=== PATIENT | female | born 1965 | race Caucasian/White ===

== ENCOUNTER → 2017-01-01 | Outpatient (CLI) | payer OTHER ==
[~2017-01-01] MED LIST: CLTP PO; FBR PO; METH4PAK4 PO; MULT-506 PO
--- NOTE | 2017-01-02 12:52 | MAMMOGRAPHY REPORT ---
BILATERAL DIGITAL SCREENING MAMMOGRAM TOMOSYNTHESIS WITH CAD: 01/01/2017 CLINICAL HISTORY: Routine screening. Patient has no complaints. TECHNIQUE: Breast tomosynthesis in addition to standard 2D mammography was performed. Current study was also evaluated with a Computer Aided Detection (CAD) system. COMPARISON: Comparison is made to exams dated: 12/28/2015 mammogram, 12/08/2014 mammogram, 12/06/2013 m ammogram, 12/03/2012 mammogram, 11/27/2011 mammogram, and 11/25/2010 mammogram - [facility]. BREAST COMPOSITION: The tissue of both breasts is heterogeneously dense, which may obscure small ma sses. FINDINGS: There is a possible cluster of calcifications seen within the left upper outer quadrant, for which spot magnification views are recommended for further evaluation. The remainder of both breasts are stable compared to prior exams, without suspicious masses, calcifi cations, or areas of architectural distortion noted. IMPRESSION: ACR BI-RADS CATEGORY 0: INCOMPLETE EVALUATION: NEED ADDITIONAL IMAGING EVALUATION Left upper outer quadrant calcifications, for which additional imaging evaluation is recommended. T he patient will be called to schedule an appointment. Approximately 10% of breast cancers are not detected with mammography. A negative mammographic repor t should not delay biopsy if a clinically suggestive mass is present. Elle Díaz M.D. /:01/01/2017 16:47:32 Oxygen Equipment Preparer: Kev aPthak RT(R)(M), [facility] letter sent: Addl Imaging 0 BI-RADS Code: ACR BI-RADS Category 0: Incomplete Evaluation: Need Additional Imaging Evaluation
== END | disposition home or self-care (01) ==
LOC: C.MAMM 12:00
PROVIDERS: ATTEND Physician Assistant
DX: Z12.31 Encounter for screening mammogram for malignant neoplasm of breast (principal); R92.1 Mammographic calcification found on diagnostic imaging of breast

== ENCOUNTER → 2017-01-08 | Outpatient (CLI) | payer OTHER ==
--- NOTE | 2017-01-08 12:55 | MAMMOGRAPHY REPORT ---
UNILATERAL LEFT DIGITAL DIAGNOSTIC MAMMOGRAM: 01/08/2017 CLINICAL HISTORY: 51-year-old woman called back from screening mammography for a small cluster of alvin rocalcifications in the upper outer quadrant of the left breast. TECHNIQUE: Spot magnification left CC and ML views were obtained. COMPARISON: Comparison is made to exams dated: 01/01/2017 mammogram, 12/28/2015 mammogram, 12/08/2014 ma mmogram, 12/06/2013 mammogram, 12/03/2012 mammogram, and 11/27/2011 mammogram - [facility]. BREAST COMPOSITION: The tissue of the left breast is heterogeneously dense, which may obscure small masses. FINDINGS: There is a 4.4 mm cluster of punctate and smudgy micro-calcifications on the left CC view. All of the micro-calcifications demonstrate layering or tea-cupping on the spot magnification ML vie w, confirming benign milk of calcium and benign microcalcifications. No suspicious mass, architectur al distortion or cluster of microcalcifications is seen. Recommend follow-up at time of next annual screening mammogram. IMPRESSION: ACR BI-RADS CATEGORY 2: BENIGN The 4.4 mm cluster of microcalcifications in the upper outer quadrant of the left breast prove to be benign based on layering on the spot magnification ML view to confirm benign milk of calcium. There is no mammographic evidence of malignancy. Return to annual mammogram screening schedule is recommend ed. The patient and her have been verbally notified of the results. Approximately 10% of breast cancers are not detected with mammography. A negative mammographic report should not delay biopsy if a clinically suggestive mass is present. Alysa Yoo M.D. ay/:01/08/2017 08:47:57 Elevator Operator Service: Devorah PRAKASH(R)(M), [facility] letter sent: Normal 1/2 BI-RADS Code: ACR BI-RADS Category 2: Benign
== END | disposition home or self-care (01) ==
LOC: C.MAMM 08:15
PROVIDERS: ATTEND Physician Assistant
DX: R92.0 Mammographic microcalcification found on diagnostic imaging of breast (principal)

== ENCOUNTER → 2017-03-25 | Outpatient (CLI) | payer OTHER ==
--- NOTE | 2017-03-25 09:59 | DIAGNOSTIC IMAGING REPORT ---
ADDENDUM Outside imaging from 04/20/2014 now available for comparison. Mild progression of uncovertebral hypertrophy on the right at C4-5 and C6-7 with resultant mild worsening of neural foraminal narrowing since the prior exam. Again, no significant spinal canal narrowing. Electronically signed by: Francisco Horne M.D. 03/25/2017 3:21 PM Dictated Date/Time: 03/25/2017 3:20 PM ORIGINAL REPORT CERVICAL WITHOUT CONTRAST CLINICAL HISTORY: 51 years-old Female presenting with low back pain, lumbosacral radiculopathy, no history of surgery or cancer, increased neck pain radiating down the left arm. TECHNIQUE: Multisequence, multiplanar MR imaging of the cervical spine was performed without the use of intravenous contrast. IV contrast: None. COMPARISON: None. FINDINGS: Localizer images: Unremarkable. Straightening of normal cervical lordosis, likely degenerative in etiology. Mild vertebral body height loss of C6. Remainder of vertebral bodies demonstrate normal height, alignment, and bone marrow signal intensity. Intervertebral disc desiccation noted at C5-6 and C6-7. Multilevel degenerative changes with multilevel disc osteophyte complexes from C3-4 through C6-7 further detailed below: C2-3: Normal. C3-4: Disc osteophyte complex and uncovertebral hypertrophy do not result in significant neural foraminal or spinal canal narrowing. C4-5: Disc osteophyte complex and right uncovertebral hypertrophy result in moderate right neural foraminal and right lateral recess narrowing. No significant spinal canal narrowing. C5-6: Disc osteophyte complex and right uncovertebral hypertrophy result in mild right neural foraminal narrowing. No significant spinal canal narrowing. Prominent anterior osteophytes with resultant mass effect on the upper esophagus. C6-7: Disc osteophyte complex and bilateral uncovertebral hypertrophy result in moderate to severe right and mild left neural foraminal narrowing. No significant spinal canal narrowing. C7-T1: Normal. Cervical spinal cord maintains normal morphology and signal intensity. Paraspinal soft tissues within normal limits. IMPRESSION: 1. Multilevel degenerative changes with varying degrees of neural foraminal narrowing worse on the right and most severe at C6-7 further detailed above. No second spinal canal narrowing. Electronically signed by: Francisco Horne M.D. 03/25/2017 9:58 AM Dictated Date/Time: 03/25/2017 9:50 AM
--- NOTE | 2017-03-25 10:52 | DIAGNOSTIC IMAGING REPORT ---
MRI LUMBAR SPINE W/O CONTRAST CLINICAL HISTORY: M54.5 M54.17 LOW BACK PAIN WITH RIGHT LEG RADICULOPATHY. TECHNIQUE: Sagittal and axial T1, T2 and STIR images were obtained. COMPARISON STUDY: Outside MRI study dated 10-23 OBSERVATIONS: The vertebral bodies and posterior elements appear intact. There is no abnormal bony signal present to suggest a marrow replacement process. Multiple Schmorl's nodes are visualized. L1-2: There is a small right posterior lateral disc protrusion with mild deformity of the thecal sac. There is no significant foraminal narrowing. L2-3: No disc protrusions or extrusions. No evidence of spinal canal or neural foraminal compromise. L3-4: No disc protrusions or extrusions. No evidence of spinal canal or neural foraminal compromise. L4-5: There is a minimal circumferential disc bulge. There is facet joint arthropathy. There is mild to moderate right-sided foraminal narrowing. There is no significant spinal stenosis L5-S1: There is no significant disc bulge or focal herniation. There is facet joint arthropathy. There is no significant spinal or foraminal stenosis. The conus medullaris and cauda equina appear normal. IMPRESSION: 1. Stable small right posterior lateral disc protrusion at the L1-2 level. 2. Disc bulge, facet joint arthropathy, and mild to moderate right-sided foraminal narrowing at the L4-5 level, similar to the prior study 3. Multilevel Schmorl's nodes. Multilevel spondylitic change. Electronically signed by: Lukas Amaral M.D. 03/25/2017 10:51 AM Dictated Date/Time: 03/25/2017 10:45 AM
== END | disposition home or self-care (01) ==
LOC: C.MRIBC 08:58
PROVIDERS: ATTEND Psychiatry & Neurology Neurology
DX: M54.2 Cervicalgia (principal); M54.81 Occipital neuralgia; M51.16 Intervertebral disc disorders with radiculopathy, lumbar region; M51.46 Schmorl's nodes, lumbar region

== ENCOUNTER → 2017-04-01 | Outpatient (CLI) | payer OTHER | END | disposition home or self-care (01) | LOC: C.LAB1850 14:33 | PROVIDERS: ATTEND Internal Medicine Infectious Disease | DX: A49.02 Methicillin resistant Staphylococcus aureus infection, unspecified site (principal) ==